=== PATIENT | female | born 1955 | race Caucasian/White ===

== ENCOUNTER → 2017-05-01 | Day surgery (SDC) | payer OTHER ==
[2017-05-01] VITALS (9 sets, daily range): BP systolic 107–155; BP diastolic 65–85; PULSE 49–61; RESP 7–16; O2SAT 96–100
[~2017-05-01] VITALS: Ht 165.1 cm; Wt 73.2 kg
[~2017-05-01] MED LIST: Bupivacaine-MPF 0.25%/EPI 30 mL Inj INFILTRATE ONE; Dexamethasone 4 mg/mL Inj IVPUSH PRN; Dexamethasone 4 mg/mL Inj ONE; EPHEDrine Sulfate 50 mg/mL Inj IVPUSH PRN; HYDROmorphone 1 mg/mL Inj IVPUSH PRN; Ketamine 10 mg/mL 20 mL Inj ONE; Lactated Ringer's 1,000 ML IV SCH; Lactated Ringer's 500 ML IV PRN; MULT-1027 PO; MetoCLOpramide 5 mg/mL 2 mL Inj IVPUSH PRN; MetoCLOpramide 5 mg/mL 2 mL Inj ONE; Ondansetron 2 mg/mL 2 mL Inj IVPUSH PRN; Ondansetron 2 mg/mL 2 mL Inj ONE; Phenylephrine 10,000 mCg/mL Inj IVPUSH PRN; [UNRECOGNIZED DRUG - OTHER] PO; fentaNYL-PF 50 mCg/mL 2 mL Inj IVPUSH PRN; fentaNYL-PF 50 mCg/mL 2 mL Inj ONE; oxyCODONE-Acetamin 5-325 mg Tablet PO PRN
[2017-05-01] MEDS: Lactated Ringer's 1,000 ML IV SCH ×2 (10:10→14:00)
--- NOTE | 2017-05-01 13:54 | DRSVH ---
PROCEDURE: NM SENTINEL NODE INJECTION ONLY, LEFT BREAST RADIOPHARMACEUTICAL: 0.53 mCi Millipore filtered Tc-99m sulfur colloid. INDICATIONS: LEFT BREAST CANCER PROCEDURE: The indications, alternatives, benefits, risks, and complications of the procedure were explained to the patient. Written informed consent was obtained and placed in the chart. The area around the nip ple was prepped and draped in a sterile fashion. Tc-99m sulfur colloid was injected in the outer edg e of the areola in the left breast. No image was obtained. IMPRESSION: Administration of radiotracer into the left breast periareolar region for intra-operativ e sentinel lymph node localization. Dictated by: Margarette Walden MD, PhD on 05/01/2017 at 13:51 Approved by: Margarette Walden MD, PhD on 05/01/2017 at 13:52
--- NOTE | 2017-05-01 14:55 | PCM.HPANE ---
Patient Data Surgeon Admitting Provider: Attending Provider:Dennis Aguilera MD Primary Care Physician:Claudio Astudillo MD Other Provider:[facility] Reason for Visit Left Breast Cancer Ht/WT & BMI Height (Feet): 5 Height (Inches): 5 Weight (Kilograms): 73.2 Body Mass Index 26.00 Allergies Coded Allergies: No Known Allergies (Verified Allergy, Unknown, 07/11/14) Past Anesthesia History Anesthesia History: Denies:: Abnormal Airway, Anesthesia Reactions, Difficult Intubation, Fam Anesthesia Reaction, Fam Malignant Hypertherm, Malignant Hyperthermia Diabetes History Hx Diabetes?: No MRSA MRSA: No Medications Hypertension Medication: No Home Meds Incl Beta Ruby: No Reported Medications [Nerium EHT] No Conflict Check1 Tab PO DAILY 04/21/17 Multivitamin/Iron/Folic Acid ([employer] Women's Tab)1 Each Tablet1 Each PO DAILY 04/21/17 History History of ENT Problems?: No HEENT History: Denies:: Abnormal Airway Cataracts (forming) Difficult Intubation Dysphagia Glaucoma Hearing Problem Sinus Problem Denture Type: None Teeth Condition: Within Normal Limits Hx of Heart Problems?: No Cardiovascular History: Denies:: AICD Abdominal Aortic Aneurism Atrial Fibrillation Cardiac Surgery Heart Murmur Hypertension Irregular Heartbeat Pacemaker Peripheral Vascular Valvular Heart Disease Hx of Respiratory Problem?: No Respiratory History: Denies:: Asthma COPD Emphysema Oxygen Administration Pneumonia Tuberculosis Use of C-PAP Machine Use of Inhalers / NEBS Hx Neurologic Problems?: No Neurological History: Denies:: Alzheimer's Disease CVA Dementia Dizziness Headaches Multiple Sclerosis Parkinson's Disease Seizures Hx of GI Problems?: No Hx of Problems?: No Genitourinary History: Denies:: Kidney Stones Urinary Tract Infection Female Hx: Positive for:: Problems with Breasts? (left breast cancer current admission problem) Denies:: Currently (tubal ) Endometriosis Pelvic Inflammatory Skin History: Denies:: History Skin Disorders? Pressure Ulcers Hx Musculoskeletal Problems?: No Musculoskeletal History: Denies:: Back Injury Fibromyalgia Joint Replacement Myasthenia Gravis Osteoarthritis Systemic Lupus Hx of Psycho/Social Problems?: No Psycho Social History: Denies:: Anxiety Hx Depression Hx Surgeries?: Yes (Eye Surg age 9; Tonsillectomy age 7; ;) Hx Any Other Health Problems?: Yes Other History: Positive for:: Cancer (left breast current admission problem) Hospitalization Denies:: Endocrine Disease Thyroid Disease History Blood Transfusions: Positive for:: Accept Blood Products? Denies:: Blood Transfusions Hx Diabetes: No Hx Alcohol Use: YesAlcoholic Drinks Per Day: 2-3 drinks weeklyHx Substance Use : No Smoking Status: Never Smoker Have You Smoked inLast 12 mo: No Stop/Bang Treated for Sleep Apnea?: No Do You Have a CPAP Machine?: No S-Snoring: Do You Snore Loudly: No T-Tired: feel tired, fatigued: No O-Obsered: Observed not breath: No P-Blood Pressure: treated: No B- Body Mass Index > 35 kg/m2: No A- Age over 50: Yes N- Neck Large Circumference: No G- Gender Male: No VALERIE Total Score: 1 VALERIE Risk Assessment: Low Risk, <3 Yes Risk Assessment Category Category 1A: Patient has history of documented sleep apnea, and HAS NOT received any narcotic, sedative or anesthesia administration during this stay. Category 1B: Patient has history of documented sleep apnea, and HAS received any narcotic , sedative or anesthesia administration during this stay Category 2: Patient has SUSPECTED Obstructive Sleep Apnea, and HAS received any narcotic , sedative or anesthesia administration during this stay. Category 3: Patient has SUSPECTED Obstructive Sleep Apnea and HAS NOT received narcotic, sedative or anesthesia administration during this stay. Category 4: Outpatient in Procedural Areas with known sleep apnea or who screen positive for High Risk via the STOP/BANG questionnaire. Exam Exam Vital Signs Vital Signs Date Time Temp Pulse Resp B/P Pulse Ox O2 Delivery O2 Flow Rate FiO2 05/01/17 09:58 36.5 56 16 134/84 96 Room Air General Appearance: Oriented X3 HEENT/AIRWAY: MP 2 Lungs: Normal Air Movement Heart: Regular Rate/Rhythm Meds/Labs/Diagnostics Admission Meds Current Medications Lactated Ringer's (Lr) 1,000 ml @ 120 mls/hr Q8H20M IV Last administered on t 10:10; Start 05/01/17 at 05:00; Stop 05/01/17 at 13:19; Status DC Plan Impression Patient chart reviewed, patient interviewed and anesthestic plan with risks, benefits, and alternatives discussed, and informed consent obtained. ASA Physical Status: ASA1 Normal Healthy Anesthetic Plan: GA Bene/Risks/Altern/Consents: Yes HP Complete Prior to Induction: Yes Rolando Mathews MD May 01, 2017 14:55
--- NOTE | 2017-05-01 16:45 | PCM.ANEP1 ---
Post Anesthesia PACU Phase 1 Assessment Vital Signs Vital Signs Date Time Temp Pulse Resp B/P Pulse Ox O2 Delivery O2 Flow Rate FiO2 05/01/17 16:30 60 8 135/80 100 Simple Mask 10 05/01/17 16:25 51 7 124/70 99 Simple Mask 10 05/01/17 16:22 36.1 49 8 107/65 98 Simple Mask 10 05/01/17 09:58 36.5 56 16 134/84 96 Room Air Anesthetic Administered: GA Level of Alertness: Awake, talking Pain: No Nausea or Vomiting: No CV Function & Hydration Stable: Yes Airway Device: Oralpharangeal Airway Lungs: Normal Air Movement PACU Phase 2 Assessment Patient Instructions Provided: N/A Rolando Mathews MD May 01, 2017 16:45
--- NOTE | 2017-05-01 18:51 | OP ---
[address] [address] OPERATIVE REPORT PATIENT: JAMAR ALEJO : 1955 MR#: [id number] ADMIT: 05/01/2017 JOB ID: [id number] DATE OF SURGERY: 05/01/2017 ANESTHESIA: General. PREOPERATIVE DIAGNOSIS(ES): Left breast cancer. POSTOPERATIVE DIAGNOSIS(ES): Left breast cancer. OPERATION: Left wire localized partial mastectomy and left sentinel lymph node biopsy. SURGEON: Dennis Aguilera MD DATA ENTRY ASSOCIATE: Louis Garcia PA-C (the traffic assistant was required for the safe and timely completion of the case). COMPLICATIONS: None. ESTIMATED BLOOD LOSS: Less than 2 mL. CONDITION: Satisfactory. SPECIMEN: 1. Left non sentinel lymph node. 2. Left sentinel lymph node number one. 3. Left sentinel lymph node number two. 4. Left partial mastectomy. FINDINGS: 1. There was a large non sentinel lymph node which initially I thought had signal and removed, however there was no ex vivo signal. [place] lymph node number one had an ex vivo count of 600. [place] lymph node number two had an ex vivo count of 1362. Subsequent axillary reading showed a level of around 12. 2. Left wire localized mastectomy specimen radiograph demonstrated the biopsy clip. INDICATIONS AND SIGNIFICANT HISTORY: The patient is a 62-year-old woman with a recently diagnosed left breast cancer after she underwent screening mammography. The mammograms demonstrate two concerning lesions. Biopsies were performed of both. The first at four o'clock, 2 cm from the nipple, demonstrated fibrocystic change. Negative for atypia or malignancy. A 2nd lesion at the 2 o'clock position, 3 cm from the nipple, demonstrates invasive ductal carcinoma, moderately differentiated, with no lymphovascular invasion, ER/TN positive, HER-2 negative. An MRI was subsequently obtained which showed no other concerning findings. OPERATIVE TECHNIQUE: In the preoperative area the patient received a radionucleotide injection. She was taken to the operating room and placed in supine position. General anesthesia was administered. The left breast and axilla and arm were prepped and draped in standard surgical fashion. A procedural pause was performed. The left axilla had a good gamma reading. Local anesthetic were injected and the left axillary transverse incision was made. Dissection was carried down through skin and subcutaneous tissue. The axillary fascia was opened. I then used the gamma probe to locate a strong signal. A large lymph node was encountered and I thought that the signal originated from this. Circumferentially dissected free. I clipped the base to minimize the risk of lymphatic leak and removed the node; however, there was no ex vivo signal. I then used the gamma probe to locate two lymph nodes with strong signal, both removed, with findings as above. Subsequently re-demonstrated no significant activity. The axilla was packed and attention turned to the left breast. A radial incision was made encompassing the wire and dissection carried down through skin and into the breast tissue. I then coned out a tube of tissue along the wire, generously extending beyond the wire. The specimen was then removed and marked with a long stitch lateral and double stitch deep. Specimen radiograph confirmed presence of the clip. The axilla was then closed with 3-0 Vicryl to the fascia, followed by running 4-0 Monocryl for the skin. The breast was closed with a running 4-0 Monocryl. Dermabond was applied to both incisions. The entire procedure was well tolerated, without complication.
--- NOTE | 2017-05-02 07:25 | DRSVH ---
SPECIMEN: 05/01/2017 CLINICAL: Breast specimen left. Correlation is made to exams dated: 05/01/2017 localization, 04/02/2017 mammogram, 03/26/2017 mammogram , 03/17/2017 mammogram, and 06/21/2014 mammogram - Breast [facility]. IMPRESSION: SPECIMEN Specimen radiograph containing the specimen with biopsy marker and a portion of the marking wire. This exam was interpreted at Station ID: [id number]. Home Tobias M.D. cj/:05/01/2017 17:34:32 copy to: GIL ECHEVERRIA Additional referring physicians: KELY SHULTZ, AIDA SCHMITZ
--- NOTE | 2017-05-07 11:22 | PATH ---
SURGICAL PATHOLOGY Attending Physician:Dennis Aguilrea MD CASE STATUS: Signed Out PATIENT NAME: JAMAR ALEJO PID: [id number] : 1955 DATE COLLECTED:05/01/2017 00:00 SPECIMEN: 1: Lymph Node, Biopsy 2: [place] Lymph Node 3: [place] Lymph Node 4: Breast, Simple Mastectomy (lymph nodes submitted separately) CLINICAL HISTORY: LEFT BREAST CANCER 1). NON-SENTINEL LYMPH NODE 2). SENTINEL LYMPH NODE #1 3). SENTINEL LYMPH NODE #2 4). LEFT PARTIAL MASTECTOMY, SUTURE FRANCES, LONG-LATERAL, DOUBLE-DEEP FINAL DIAGNOSIS: 1. Left Axilla Non-sentinel Lymph Node: Single lymph node negative for malignancy. 2. Left Axillary [place] Lymph Node #1: One lymph node negative for malignancy (see CAP Cancer Summary below). 3. Left Axilla, [place] Lymph Node #2: Single lymph node negative for malignancy (see CAP Cancer Summary below). 4. Left Partial Mastectomy Specimen, Wire Localization: Infiltrating ductal carcinoma (see CAP cancer summary below). CAP CANCER CASE SUMMARY INVASIVE CARCINOMA OF THE BREAST: PROCEDURE: Wire localization excisional specimen. LYMPH NODE SAMPLING: Two sentinel nodes and one non-sentinel node SPECIMEN LATERALITY: Left TUMOR SITE: Upper outer quadrant (2 o'clock) TUMOR SIZE: 0.3 x 0.2 cm HISTOLOGIC GRADE: MATEUSZ HISTOLOGIC SCORE: 7 of 9. Glandular/Tubular differentiation: Score 3 of 3 Nuclear Pleomorphism: Score 2 of 3 Mitotic Rate: Score 2 of 3 (intermediate) Overall tumor grade: Grade 2 of 3 (Intermediate grade). TUMOR FOCALITY: Single focus DUCTAL CARCINOMA IN SITU: Not identified MARGINS INVASIVE CARCINOMA: Inferior: 0.3 cm Medial: 0.3 cm All other margins: Greater than 1 cm LYMPH NODES Total number of lymph nodes examined: 3 Number of sentinel lymph nodes examined: 2 Lymph Node Involvement: All three nodes negative for malignancy. Method of Evaluation of [place] Lymph Nodes: H&E sections. LYMPH-VASCULAR INVASION: Negative. PATHOLOGIC STAGING: AJCC, 7th ed., 2010 PRIMARY TUMOR: pT1a REGIONAL LYMPH NODES: pN0(sn) ANCILLARY STUDIES: Biomarkers performed on previous biopsy as per clinical oncology note of 04/21/2017 Estrogen Receptor (ER) Status: Positive Progesterone Receptor (PgR) Status: Positive HER2 (by immunohistochemistry): Negative/ ICD10: C50.412 GROSS DESCRIPTION: The specimens are received in formalin, labeled with the patient's name, and sublabeled as the following: (1) non-sentinel lymph node; (2) sentinel lymph node #1; (3) sentinel lymph node #2; (4) L partial mastectomy. (1) The specimen consists of a lymph node (3.8 x 1.9 x 1.3 cm). Section code: (1A-1D) one lymph node, 7 sections. Specimen entirely submitted. (2) The specimen consists of a lymph node (1.5 x 1.1 x 0.7 cm). Section code: (2A) one lymph node, serially sectioned. Specimen entirely submitted. (3) The specimen consists of a lymph node (1.0 x 0.8 x 0.5 cm). Section code: (3A) one lymph node, serially sectioned. Specimen entirely submitted. (4) The specimen consists of a piece of breast tissue (5.0 cm AP, 1.7 cm SI, 2.8 cm ML) with no overlying skin. The specimen is oriented with 2 black sutures (long-lateral, double-deep). A localization wire is present. The specimen is serially sectioned AP into 23 slices with the anterior and posterior resection margins slices #1 and #23 respectively. The breast tissue is fatty and contains 2 pale yellow solid firm semi-circumscribed masses, which correlates closely to the operative report. Mass #1 (0.8 x 0.7 x 0.2 cm), within slices #14-#16, is 2.8 cm from the anterior, 1.5 cm from the posterior, 0.6 cm from the superior, less than 0.1 cm from the inferior, 0.4 cm from the medial, and 2.0 cm from the lateral resection margins. Mass #2 (0.7 x 0.5 x 0.2 cm), within slices #18-#20, is 0.2 cm from mass #1, 3.7 cm from the anterior, 0.6 cm from the posterior, less than 0.1 cm from the superior, 0.6 cm from the inferior, 0.2 cm from the medial and 1.7 cm from the lateral resection margins. No other nodules, masses or lesions are identified. Ink code: purple-anterior; yellow-posterior; black-superior; orange-inferior; green-medial; blue-lateral. Section code: (4A) anterior resection margin, perpendicularly sectioned; (4B) slices #2-#4; (4C) slice #5; (4D) slice #6; (4E) slice #7; (4F) slice #8; (4G) slice #9; (4H) slice #10; (4I) slice #11; (4J) slice #12; (4K) slice #13, tissue adjacent to mass #1; (4L) slice #14; (4M) slice #15; (4N) slice #16; (4O) slice #17, tissue between mass #1 and #2; (4P) slice #18; (4Q) slice #19; (4R) slice #20; (4S) slice #21, tissue adjacent to mass #2; (4T) slice #22; (4U) posterior resection margin, perpendicularly sectioned. Specimen entirely submitted. Note: Approximate total fixation time in formalin for all specimens-67 hours and 30 minutes calculated using a collection date of May 01, 2017 which time is in fixative of 0850-2835. 05/03/17 KYLE ICD-9 CODES: CPT CODES: 1: 65242 2: 16182 3: 99018 4: 09627 Electronically Signed Out Nicholas Albright MD [facility] [address], [place] [address] Technical component performed at [facility], [address] [place] [address] Ave[address], [place], [address]
== END | disposition home or self-care (01) ==
LOC: SAS 09:40
PROVIDERS: ATTEND General Practice
DX: C50.412 Malignant neoplasm of upper-outer quadrant of left female breast (principal); Z17.0 Estrogen receptor positive status [ER+]; F41.9 Anxiety disorder, unspecified
CPT/HCPCS: 19301; 38525; 38792; 76098; A9541; J1100; J2405; J2765; J3010; J7120